=== PATIENT | male | born 1985 | race Caucasian/White ===

== ENCOUNTER 2018-05-30 08:30 | Day surgery (SDC) | payer BC ==
[~2018-05-30] VITALS: Ht 180.3 cm; Wt 103.9 kg
[~2018-05-30 08:30] MED LIST: CHOL10002 PO; DICLOFONO2.5 GM TOP; OXYACE5T; OXYACE5T PO; Paxil40 MG PO; Percocet 5-3251 EACH PO; SULTRIDS PO
--- NOTE | 2018-05-30 09:23 | NUR ---
05/30/18 0923 Carol Garcia FIRST IV UNSUCCESS IN R HAND SECOND IV SUCCESS IN R HAND
== END 2018-05-30 10:46 | disposition home or self-care (01) ==
LOC: ORSCSDS 08:30
PROVIDERS: Surgery
PROC: 0DB48ZX Excision of Esophagogastric Junction, Via Natural or Artificial Opening Endoscopic, Diagnostic (ICD-10-PCS; principal; 2018-05-30 09:45)
PROC: 0DB68ZX Excision of Stomach, Via Natural or Artificial Opening Endoscopic, Diagnostic (ICD-10-PCS; principal; 2018-05-30 09:45)
DX: K22.70 Barrett's esophagus without dysplasia (principal); K21.9 Gastro-esophageal reflux disease without esophagitis; E66.9 Obesity, unspecified; Z68.31 Body mass index [BMI] 31.0-31.9, adult; Z79.899 Other long term (current) drug therapy
CPT/HCPCS: 88305; 88342; J7120

== ENCOUNTER 2018-07-22 08:25 | Day surgery (SDC) | payer BC ==
--- NOTE | 2018-07-22 09:20 | NUR ---
History, Chart, Medications and Allergies reviewed before start of procedure. Patient confirms NPO status and agrees with scheduled surgery. Patient States Post-Procedure ride home has been arranged.
--- NOTE | 2018-07-22 11:16 | NUR ---
07/22/18 1116 Poonam BarnhartEF 2 GRAMS IV AT [address] VEGA
--- NOTE | 2018-07-22 13:43 | NUR ---
VSS. BREATHING RA. RLE TOES PINK WITH LESS THAN 1 SECOND CAPILLARY REFILL. DRINKING JUICE. NO C/O VERBALIZED. DENIES PAIN AND NAUSEA. STATES HE CAN'T FEEL THIS TOES BEING TOUCHED. PATIENT ABLE TO BEND RIGHT KNEE WITH EFFORT.
--- NOTE | 2018-07-22 14:34 | NUR ---
PATIENT CONCERNED ABOUT PAIN STARTING, BUT STATES STILL NUMB TO RLE AND DENIES PAIN. ORAL ANALGESIC GIVEN TO PREVENT PAIN PER PATIENT REQUEST. UP TO URINATE WITH URINAL ON SIDE OF BED. DENIES DIZZINESS WHILE SITTING UP. Discharge instructions reviewed with patient. Patient verbalizes understanding. Copy given to patient to take home. Patient States Post-Procedure ride home has been arranged with his .
--- NOTE | 2018-07-22 14:39 | NUR ---
REPORT GIVEN TO CHANA DIAS RN.
== END 2018-07-22 14:50 | disposition home or self-care (01) ==
LOC: ORSCMMR 08:25 → ORD 10:15 → ORSCMMR 14:50
PROVIDERS: Orthopaedic Surgery
PROC: 0LQN0ZZ Repair Right Lower Leg Tendon, Open Approach (ICD-10-PCS; principal; 2018-07-22 10:25)
DX: S86.011A Strain of right Achilles tendon, initial encounter (principal)
CPT/HCPCS: J0690; J1100; J1200; J1885; J2250; J2405; J2710; J3010; J7120

== ENCOUNTER 2020-06-24 09:22 | Day surgery (SDC) | payer BC ==
[~2020-06-24] VITALS: Ht 180.3 cm; Wt 105.4 kg
== END 2020-06-24 10:32 | disposition home or self-care (01) ==
LOC: ORSCSDS 09:22
PROVIDERS: Surgery
PROC: 0DB68ZX Excision of Stomach, Via Natural or Artificial Opening Endoscopic, Diagnostic (ICD-10-PCS; principal; 2020-06-24 10:30)
PROC: 0DB48ZX Excision of Esophagogastric Junction, Via Natural or Artificial Opening Endoscopic, Diagnostic (ICD-10-PCS; principal; 2020-06-24 10:30)
DX: K22.70 Barrett's esophagus without dysplasia (principal); K20.90 Esophagitis, unspecified without bleeding; E66.9 Obesity, unspecified; Z68.32 Body mass index [BMI] 32.0-32.9, adult
CPT/HCPCS: 88305; 88342; J2704; J7120

== ENCOUNTER → 2023-03-12 | Outpatient (CLI) | payer SELFPAY | LOC: LAB 16:17 → LAB SHORT 16:17 | DX: L08.0 Pyoderma (principal) | CPT/HCPCS: 87070; 87205 ==

== ENCOUNTER → 2023-03-12 | Outpatient (CLI) | payer SELFPAY | LOC: PLD 07:29 → LAB SHORT 07:29 | DX: R23.4 Changes in skin texture (principal); B37.9 Candidiasis, unspecified | CPT/HCPCS: 88305; 88312 ==

== ENCOUNTER → 2023-03-12 | Outpatient (CLI) | payer SELFPAY ==
[2023-03-14 13:10] LABS: HSV-1 DNA Negative (Negative); HSV-2 DNA Negative (Negative)
== END ==
LOC: LAB SHORT 16:29 → LAB 16:29
PROVIDERS: Dermatology
DX: L08.0 Pyoderma (principal)
CPT/HCPCS: 87529

== ENCOUNTER 2024-09-03 10:51 | Day surgery (SDC) | payer OTHER, BC ==
[~2024-09-03] VITALS: Ht 182.9 cm; Wt 111.2 kg
[~2024-09-03 10:51] MED LIST changes: +Bupivacaine 0.5% W/EPI 1:200000 SDV 30 ML Vial ONE
[2024-09-03] MEDS ORDERED: Calcium Carbon500 MG PO (11:09)
[2024-09-03] MEDS ORDERED: FentaNYL Citrate 50 MCG/ML 2 ML Injection ONE (11:15)
[2024-09-03] MEDS ORDERED: Ondansetron HCl 2 MG / ML 2ML Vial ONE (11:15)
[2024-09-03] MEDS ORDERED: Rocuronium Bromide 10 MG/ML 5ML Injection IV ONE (11:15)
[2024-09-03] MEDS ORDERED: propofoL 20 ML IV ONE (11:15)
[2024-09-03] MEDS ORDERED: Dexamethasone Sod Phos 10 MG/ML 1ML VIAL ONE (11:15)
[2024-09-03] MEDS ORDERED: Lactated Ringer's 1,000 ML IV ONE ×2 (11:25→11:29)
[2024-09-03] MEDS ORDERED: CeFAZolin Sodium 2,000 MG VIAL ONE (11:29)
[2024-09-03] MEDS ORDERED: OxyCODONE HCL 5 MG TAB ONE (14:18)
[2024-09-03 14:30] VITALS: BP 130/90
--- NOTE | 2024-09-03 14:40 | NUR ---
09/03/24 1440 Janeen Torres NO C/O PAIN OR DISCOMFORT. NO C/O NAUSEA. PT ABLE TO TOLERATE SNACK AND FLUIDS WELL. PT DID REQUEST TO HAVE A PAIN PILL. 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 AT SIDE OF RECLINER. ALL QUESTIONS ANSWERED, CONCERNS ADDRESSED. PT WANTED TO WALK TO PERSONAL VEHICLE. PT'S GAIT STEADY.
== END 2024-09-03 14:35 | disposition home or self-care (01) ==
LOC: ORSCSDS 10:51
PROVIDERS: Orthopaedic Surgery
PROC: 01N54ZZ Release Median Nerve, Percutaneous Endoscopic Approach (ICD-10-PCS; principal; 2024-09-03 12:30)
PROC: 0PBD0ZZ Excision of Left Humeral Head, Open Approach (ICD-10-PCS; principal; 2024-09-03 12:30)
DX: G56.02 Carpal tunnel syndrome, left upper limb (principal); M77.12 Lateral epicondylitis, left elbow; E66.9 Obesity, unspecified; Z68.33 Body mass index [BMI] 33.0-33.9, adult
CPT/HCPCS: A9270; J0690; J1100; J2405; J2704; J3010; J7120

== ENCOUNTER 2024-09-17 11:03 | Day surgery (SDC) | payer OTHER, BC ==
[~2024-09-17] VITALS: Ht 182.9 cm; Wt 111.3 kg
[~2024-09-17 11:03] MED LIST changes: -Bupivacaine 0.5% W/EPI 1:200000 SDV 30 ML Vial ONE; +Calcium Carbon500 MG PO; +NS 500 ML IV ONE; +propofoL 20 ML IV ONE
[2024-09-17] MEDS ORDERED: Lactated Ringer's 1,000 ML IV ONE (11:22)
[2024-09-17] MEDS ORDERED: Midazolam HCl 1MG / ML 2ML Vial ONE (11:50)
[2024-09-17] MEDS ORDERED: propofoL 20 ML IV ONE (12:08)
[2024-09-17 12:31] VITALS: BP 132/87
--- NOTE | 2024-09-17 13:04 | NUR ---
09/17/24 1304 VIELKA SAMS VERY PLEASANT PT. IN ROOM DURING DC INSTRUCTIONS. NO ISSUES NOTED. PT WANTING TO WALK TO CAR WITH . "I FEEL GOOD"
== END 2024-09-17 13:00 | disposition home or self-care (01) ==
LOC: ORSCSDS 11:03
PROVIDERS: Orthopaedic Surgery
PROC: 01N54ZZ Release Median Nerve, Percutaneous Endoscopic Approach (ICD-10-PCS; principal; 2024-09-17 12:40)
DX: G56.01 Carpal tunnel syndrome, right upper limb (principal); E66.9 Obesity, unspecified
CPT/HCPCS: J2250; J2704; J7040

== ENCOUNTER → 2024-11-18 | Outpatient (CLI) | payer OTHER, BC ==
[~2024-11-18] MED LIST changes: -NS 500 ML IV ONE; -propofoL 20 ML IV ONE
[2024-11-19 15:15] LABS: BASOPHILS ABSOLUTE AUTO 0.07 K/mm3 (0.00-0.23); BASOPHILS PERCENT AUTO 1 % (0-2); EOSINOPHILS ABSOLUTE AUTO 0.09 K/mm3 (0.00-0.68); EOSINOPHILS PERCENT AUTO 1 % (0-6); Hematocrit 50.7 % (37.0-53.0); Hemoglobin 17.3 g/dL (13.5-17.5); IMMATURE GRAN ABSOLUTE AUTO 0.02 K/mm3 (0.00-0.10); IMMATURE GRAN PERCENT AUTO 0 % (0-1); LYMPHOCYTES ABSOLUTE AUTO 2.27 K/mm3 (0.84-5.20); LYMPHOCYTES PERCENT AUTO 31 % (21-46); MONOCYTES ABSOLUTE AUTO 0.61 K/mm3 (0.16-1.47); MONOCYTES PERCENT AUTO 8 % (4-13); Mean Corpuscular HGB Conc 34.1 g/dL (31.5-36.5); Mean Corpuscular Volume 88 fL (80-100); NEUTROPHILS ABSOLUTE AUTO 4.39 K/mm3 (1.96-9.15); NEUTROPHILS PERCENT AUTO 59 % (41-73); NRBC ABSOLUTE 0.00 K/mm3 (0.00-0.02); NRBC Auto 0.0 /100 WBC (0.0-0.2); Platelet Count 291 K/mm3 (150-400); RDW Coefficient Variation 12.3 % (11.7-14.2); RDW Standard Deviation 39.8 fL (35.1-46.3)
[2024-11-19 15:44] LABS: Anion Gap 7.0 mmol/L (3-11); Blood Urea Nitrogen 18.0 mg/dL (8-24); CO2, Blood 28.0 mmol/L (21-32); Calcium, Blood 8.5 mg/dL (8.5-10.1); Chloride, Blood 106.0 mmol/L (98-108); Creatinine, Blood 1.43 mg/dL (0.60-1.20); Glucose, Blood 79.0 mg/dL (70-99); Potassium, Blood 4.1 mmol/L (3.5-5.5); Sodium, Blood 137.0 mmol/L (136-145)
== END ==
LOC: LAB SHORT 17:32
PROVIDERS: Hospitalist
DX: R31.29 Other microscopic hematuria (principal)
CPT/HCPCS: 80048; 85025; 87086

== ENCOUNTER 2025-01-02 05:23 | Emergency (ER) | payer OTHER, BC ==
[~2025-01-02] VITALS: Ht 182.9 cm; Wt 113.4 kg
[2025-01-02] MEDS ORDERED: OxyCODONE 5 mg/Acetamin 325 mg TABLET PO ONE (05:55)
[2025-01-02] MEDS ORDERED: OXYACE7.5T PO (06:06)
[2025-01-02 06:30] VITALS: BP 137/90
== END 2025-01-02 06:35 | disposition home or self-care (01) ==
LOC: ER 05:23
DX: S99.912A Unspecified injury of left ankle, initial encounter (principal); W18.30XA Fall on same level, unspecified, initial encounter; Z91.048 Other nonmedicinal substance allergy status
CPT/HCPCS: 73610; 73630; 99283-25; A9270